=== PATIENT | male | born 1945 | race Two or more races ===

== ENCOUNTER 2018-06-03 16:36 | Emergency (ER) | payer MEDICARE, OTHER ==
[~2018-06-03] VITALS: Ht 172.7 cm; Wt 90.7 kg
[2018-06-03 17:55] LABS: Hematocrit 31.8 % (41.0-53.0); Hemoglobin 10.3 g/dL (13.5-17.5); Mean Corpuscular Hemoglobin 30.9 pg (28.0-32.0); Mean Corpuscular Hgb Conc. 32.5 g/dL (32.0-36.0); Mean Corpuscular Volume 95.1 fL (80.0-100.0); Platelet Count (auto) 280 10^3/uL (140-450); Red Blood Cells 3.34 10^6/uL (4.5-5.90)
[2018-06-03 18:00] LABS: Basophils % (manual) 0 (0.0-2.0); Blast Cells 0; Eosinophils % (manual) 0 (0-7); Myelocytes % 0; Promyelocytes % 0; Reactive Lymphocytes 0
[2018-06-03 18:27] LABS: Alanine Aminotransferase 16 U/L (16-61); Albumin 3.6 g/dL (3.4-5.0); Alkaline Phosphatase 75 U/L (45-117); Anion Gap 25 (5-15); Aspartate Aminotransferase 6 U/L (15-37); Bilirubin, Total 0.3 mg/dL (0.2-1.0); Blood Alcohol < 3.0 mg/dL (0-5); Calcium 6.8 mg/dL (8.5-10.1); Chloride 106 mmol/L (98-107); GFR African American 5 mL/min; GFR Non-African American 4 mL/min; Glucose 118 mg/dL (74-106); Sodium 136 mmol/L (136-145); Total Protein 8.5 g/dL (6.4-8.2)
[2018-06-03 18:30] LABS: BUN/Creatinine Ratio 10.7; Band Neutrophils % (manual) 1; Lymphocytes % (manual) 14 (10.0-50.0); Metamyelocytes % 5; Monocytes % (manual) 6 (0-12)
[2018-06-03 18:32] LABS: Carbon Dioxide 5 mmol/L (21-32); Potassium 6.6 mmol/L (3.5-5.1)
[2018-06-03 18:33] LABS: Blood Urea Nitrogen 146 mg/dL (7-18)
[2018-06-03] MEDS ORDERED: SODIUM CHLORIDE 0.9% 1,000 ML IVB ONE (18:43)
[2018-06-03] MEDS ORDERED: LORazepam 2MG/ML-1ML VIAL ONE (18:55)
[2018-06-03] MEDS ORDERED: LORazepam 2MG/ML-1ML VIAL IM ONE ×2 (19:00→19:30)
[2018-06-03] MEDS ORDERED: MIDAZOLAM DRIP 50 mg/50mL 50 ML IV SCH ×2 (19:18→22:12)
[2018-06-03] MEDS ORDERED: SUCCINYLCHOLINE CHLORIDE 20 MG/ML 10ML VIAL IV ONE (19:30)
[2018-06-03] MEDS ORDERED: ETOMIDATE (2MG/ML) 20ML VIAL IV ONE (19:30)
[2018-06-03] MEDS ORDERED: FUROSEMIDE 20 MG/2 ML VIAL IV ONE (19:30)
[2018-06-03] MEDS ORDERED: CALCIUM CARB 500 MG CHEW TAB PO ONE (19:30)
[2018-06-03] MEDS ORDERED: SODIUM POLYSTYRENE SULF 15GM/60ML SUSP PO ONE (19:30)
[2018-06-03] MEDS ORDERED: SODIUM BICARBONATE 8.4 % INJ 50ML VIAL IV ONE ×2 (19:30→20:45)
[2018-06-03] MEDS ORDERED: SODIUM CHLORIDE 0.9% 1,000 ML IV ONE (19:30)
[2018-06-03 19:52] LABS: Amylase 369 U/L (25-115); INR 1.04 (0.9-1.15); Lipase 1382 U/L (73-393); Prothrombin Time 11.1 sec (9.27-12.13)
[2018-06-03 20:00] VITALS: BP 167/76
[2018-06-03 20:13] LABS: Urine Amorphous Crystal FEW /hpf (None Seen); Urine Bacteria NONE SEEN /hpf (None Seen); Urine Blood 1+ /uL (Negative); Urine Mucus FEW (None Seen); Urine Specific Gravity 1.016 (1.001-1.035); Urine WBC 14 /hpf (0 - 3); Urine WBC Clumps PRESENT /hpf (None Seen)
[2018-06-03] MEDS: PROPOFOL 100 ML IV SCH ×2 (20:13→21:46)
[2018-06-03 20:15] LABS: Alcohol, Urine < 3.0 mg/dL (0-5); Amphetamine Screen, Urine NEGATIVE (NEGATIVE); Barbiturate Scree,Urine NEGATIVE (NEGATIVE); Benzodiazephine Screen, Urine NEGATIVE (NEGATIVE); Cannabinoid Screen, Urine NEGATIVE (NEGATIVE); Cocaine Screen, Urine NEGATIVE (NEGATIVE); Opiate Scree,Urine NEGATIVE (NEGATIVE); Phencyclidine Screen, Urine NEGATIVE (NEGATIVE)
[2018-06-03] MEDS ORDERED: ONDANSETRON HCL 4 MG/2 ML VIAL IV PRN (21:15)
[2018-06-03] MEDS ORDERED: SODIUM BICARBONATE 50ML VIAL 100 ML in SOD CHL 0.45% 1,000 ML IV SCH (21:15)
[2018-06-03] MEDS ORDERED: ACETAMINOPHEN 325 MG TAB PO PRN (21:15)
[2018-06-03] MEDS ORDERED: MORPHINE SULFATE 4 MG/ML SYR/VIAL IV PRN (21:15)
[2018-06-03] MEDS ORDERED: SODIUM BICARBONATE 50ML VIAL 100 ML in D5W 5% 1,000 ML IV ONE (21:15)
[2018-06-03] MEDS ORDERED: DEXTROSE (50%) 50ML SYRG IV PRN (21:15)
[2018-06-03] MEDS ORDERED: NITROGLYCERIN 0.4 MG SL TAB SL PRN (21:15)
[2018-06-03] MEDS ORDERED: PANTOPRAZOLE 40 MG/10 ML VIAL IV ONE (21:30)
[2018-06-03 21:45] VITALS: BP 94/54
[2018-06-03] MEDS ORDERED: CLINDAMYCIN 600MG IV 50 ML IV SCH (22:00)
[2018-06-03] MEDS ORDERED: PROPOFOL 100 ML IV SCH (22:12)
[2018-06-03] MEDS ORDERED: SODIUM BICARBONATE 8.4% INJ 50ML SYRINGE ONE (22:21)
[2018-06-03 23:02] VITALS: BP 100/54
[2018-06-03 23:46] LABS: BUN/Creatinine Ratio 11.6; Bilirubin, Total 0.3 mg/dL (0.2-1.0); Total Protein 7.1 g/dL (6.4-8.2)
[2018-06-03 23:50] LABS: Potassium 7.6 mmol/L (3.5-5.1)
[2018-06-03 23:51] LABS: Calcium 5.7 mg/dL (8.5-10.1)
[2018-06-04] MEDS ORDERED: InsuLIN REG 1unit/0.01ml Soln (100units/ml) SC SCH
[2018-06-04] MEDS ORDERED: ACCU-CHEK COMFORT CURVE STRIP VI SCH
[2018-06-04] MEDS ORDERED: PANTOPRAZOLE 40 MG/10 ML VIAL IV SCH (10:00)
== END 2018-06-03 23:41 | disposition short-term general hospital (02) ==
LOC: ER 16:36 → EDBD 16:36 → ER 23:41
DX: I62.00 Nontraumatic subdural hemorrhage, unspecified (principal); E11.10 Type 2 diabetes mellitus with ketoacidosis without coma; R41.82 Altered mental status, unspecified; E87.5 Hyperkalemia; E11.22 Type 2 diabetes mellitus with diabetic chronic kidney disease; N18.1 Chronic kidney disease, stage 1; K85.90 Acute pancreatitis without necrosis or infection, unspecified
CPT/HCPCS: 31500; 36415; 70450; 71045; 80053; 80307; 80320; 81001; 82010; 82150; 82962; 83690; 83735; 83880; 84132; 84443; 84484; 85007; 85025; 85027; 85610; 85730; 87070; 87077; 87186; 87205; 96361; 96372; 96374; 96375; 96376; 99291; C9113; J0330; J2060; J2250; J2704; J7030; J7070; 94002

== ENCOUNTER 2018-06-27 19:07 | Emergency (ER) | payer OTHER ==
[~2018-06-27] VITALS: Ht 172.7 cm; Wt 90.3 kg
[2018-06-27 19:44] LABS: Basophils # (auto) 0.1 uL; Eosinophils # (auto) 0.2 uL; Eosinophils % (auto) 1.5 % (0.0-7.0)
[2018-06-27 19:47] LABS: Basophils % (auto) 0.6 % (0.0-2.0); Hematocrit 26.7 % (41.0-53.0); Hemoglobin 8.9 g/dL (13.5-17.5); Lymphocytes # (auto) 1.9 uL; Lymphocytes % (auto) 14.6 % (10.0-50.0); Mean Corpuscular Hemoglobin 29.3 pg (28.0-32.0); Mean Corpuscular Hgb Conc. 33.2 g/dL (32.0-36.0); Mean Corpuscular Volume 88.4 fL (80.0-100.0); Monocytes % (auto) 7.5 % (0.0-12.0); Neutrophils % (auto) 75.8 % (37.0-80.0); Platelet Count (auto) 619 10^3/uL (140-450); Red Blood Cells 3.02 10^6/uL (4.5-5.90); White Blood Cell 13.3 10^3/uL (4.4-10.8)
[2018-06-27 19:58] LABS: Alanine Aminotransferase 20 U/L (16-61); Albumin 2.8 g/dL (3.4-5.0); Anion Gap 13 (5-15); Aspartate Aminotransferase 10 U/L (15-37); BUN/Creatinine Ratio 12.2; Blood Urea Nitrogen 64 mg/dL (7-18); Calcium 8.6 mg/dL (8.5-10.1); Carbon Dioxide 20 mmol/L (21-32); Chloride 104 mmol/L (98-107); GFR African American 14 mL/min; GFR Non-African American 12 mL/min; Glucose 117 mg/dL (74-106); Potassium 4.7 mmol/L (3.5-5.1); Sodium 137 mmol/L (136-145)
[2018-06-27 20:01] LABS: Alkaline Phosphatase 96 U/L (45-117); Bilirubin, Total 0.3 mg/dL (0.2-1.0); Total Protein 8.5 g/dL (6.4-8.2)
[2018-06-27] MEDS ORDERED: HEPARIN SODIUM (PORCINE) 5000 UNITS/ML 1ML VIAL ONE (22:01)
[2018-06-27] MEDS ORDERED: HEPARIN 1,000 UNITS/ml 1ML VIAL ONE (22:02)
[2018-06-27] MEDS ORDERED: CATHFLO ACTIVASE (ALTEPLASE) 2 MG VIAL IV ONE ×2 (22:09→22:15)
[2018-06-27 22:14] VITALS: BP 121/62
[2018-06-27] MEDS ORDERED: LIDOCAINE 1% HCL (LOCAL ANESTH.) INJ 20ML MDV ONE (22:19)
[2018-06-27] MEDS ORDERED: NEOMYCIN-BACITRACIN-POLYM UNITDOSE PKG TOP OINT TOP ONE ×2 (22:45→23:00)
[2018-06-27 23:08] LABS: Partial Thromboplastin Time 33.8 sec (23.78-33.04); Prothrombin Time 10.7 sec (9.27-12.13)
== END 2018-06-27 23:57 | disposition home or self-care (01) ==
LOC: ER 19:07 → EDBD 19:07 → ER 23:57
DX: T82.41XA Breakdown (mechanical) of vascular dialysis catheter, initial encounter (principal); M25.461 Effusion, right knee; D72.829 Elevated white blood cell count, unspecified; I12.0 Hypertensive chronic kidney disease with stage 5 chronic kidney disease or end stage renal disease; N18.6 End stage renal disease; Z99.2 Dependence on renal dialysis; Y92.89 Other specified places as the place of occurrence of the external cause
CPT/HCPCS: 20610; 36415; 36593; 71045; 80053; 83735; 83880; 84484; 85025; 85610; 85730; 87205; 89051; 89060; 94761; 99285; J1644; J2001; J2997

== ENCOUNTER 2022-10-05 13:40 | Emergency (ER) | payer OTHER ==
[~2022-10-05] VITALS: Ht 172.7 cm; Wt 72.7 kg
[2022-10-05] MEDS ORDERED: SODIUM CHLORIDE 0.9% 1,000 ML IV ONE (14:15)
[2022-10-05 14:52] LABS: Basophils # (auto) 0.1 10 ^3/uL (0-0.2); Basophils % (auto) 0.7 % (0.0-2.0); Eosinophils # (auto) 0.4 10 ^3/uL (0-0.8); Eosinophils % (auto) 4.4 % (0.0-7.0); Hematocrit 36.9 % (41.0-53.0); Hemoglobin 12.3 g/dL (13.5-17.5); Lymphocytes # (auto) 1.4 10 ^3/uL (0.4-5.4); Mean Corpuscular Hemoglobin 32.8 pg (28.0-32.0); Mean Corpuscular Hgb Conc. 33.4 g/dL (32.0-36.0); Mean Corpuscular Volume 98.2 fL (80.0-100.0); Monocytes # (auto) 0.7 10 ^3/uL (0-1.3); Monocytes % (auto) 8.2 % (0.0-12.0); Neutrophils # (auto) 5.9 10 ^3/uL (1.6-8.6); Neutrophils % (auto) 69.7 % (37.0-80.0); Nucleated Red Blood Cells % 0.1 %; Red Blood Cells 3.76 10^6/uL (4.5-5.90); Red Cell Distribution Width 13.4 % (11.8-14.3); White Blood Cell 8.5 10^3/uL (4.4-10.8)
[2022-10-05 15:51] LABS: Anion Gap 15 (5-15); BUN/Creatinine Ratio 5.7; Blood Urea Nitrogen 42 mg/dL (7-18); Carbon Dioxide 25 mmol/L (21-32); Chloride 95 mmol/L (98-107); GFR African American 9 mL/min; GFR Non-African American 8 mL/min; Glucose 176 mg/dL (74-106); Potassium 4.5 mmol/L (3.5-5.1); Sodium 135 mmol/L (136-145)
[2022-10-05 15:52] LABS: Alanine Aminotransferase 9 U/L (16-61); Albumin 3.7 g/dL (3.4-5.0); Alkaline Phosphatase 90 U/L (45-117); Aspartate Aminotransferase 5 U/L (15-37); Bilirubin, Total 0.3 mg/dL (0.2-1.0); Calcium 8.9 mg/dL (8.5-10.1); Magnesium 2.2 mg/dL (1.6-2.6); Total Protein 7.3 g/dL (6.4-8.2)
[2022-10-05 16:48] VITALS: BP 132/65
== END 2022-10-05 16:55 | disposition home or self-care (01) ==
LOC: EDBD 13:40 → EDUNIT# 13:40 → ER 13:40
DX: R42 Dizziness and giddiness (principal); E11.22 Type 2 diabetes mellitus with diabetic chronic kidney disease; I12.0 Hypertensive chronic kidney disease with stage 5 chronic kidney disease or end stage renal disease; N18.6 End stage renal disease; E11.65 Type 2 diabetes mellitus with hyperglycemia; E86.0 Dehydration; E86.1 Hypovolemia; Z86.73 Personal history of transient ischemic attack (TIA), and cerebral infarction without residual deficits
CPT/HCPCS: 36415; 71045; 80053; 83735; 83880; 85025; 93005

== ENCOUNTER 2023-08-28 02:27 | Emergency (ER) | payer OTHER ==
[~2023-08-28] VITALS: Ht 167.6 cm; Wt 68.0 kg
[2023-08-28 07:42] VITALS: BP 194/72; PULSE 67; RESP 18; O2SAT 99
[2023-08-28] MEDS ORDERED: NEOMYCIN-BACITRACIN-POLYM UNITDOSE PKG TOP OINT TOP ONE (07:45)
[2023-08-28] MEDS ORDERED: LIDOCAINE W/ EPINEPHRINE 1% 20ML VIAL ID ONE (07:45)
== END 2023-08-28 10:41 | disposition home or self-care (01) ==
LOC: ER 02:27 → EDBD 02:27 → ER 10:41
DX: S01.81XA Laceration without foreign body of other part of head, initial encounter (principal); I12.0 Hypertensive chronic kidney disease with stage 5 chronic kidney disease or end stage renal disease; E11.22 Type 2 diabetes mellitus with diabetic chronic kidney disease; N18.6 End stage renal disease; W18.39XA Other fall on same level, initial encounter; Y93.89 Activity, other specified; Y92.89 Other specified places as the place of occurrence of the external cause; Y99.8 Other external cause status
CPT/HCPCS: 12011; 70450; 70486; 71250; 72125; 74176; 93005